=== PATIENT | female | born 1970 | race Caucasian/White ===

== ENCOUNTER 2016-06-01 22:49 | Emergency (ER) ==
[2016-06-01 22:56] VITALS: BP 142/93; TEMP 98.9; BMI 23.7
--- NOTE | 2016-06-01 23:23 | ED.PDOC ---
General ED Provider: Dr. GIFTY NORTON Chief Complaint: Chest Pain Stated Complaint: patient is a 46 year old who comes to the ER with c/o pain to left side of chest that radiates to the to back. she also states it is a pressure only when she breathes. Also c/o pain to left arm. states she worked in the yard yesterday and thought initially from that but pain worsened all day. patient restarted phenteramin 1 week ago after being off for 6 months. states 2 days ago she had the dose increased and has not felt right since. Time Seen by Physician: 23:21 Mode of Arrival: Walk-In Information Source: Patient Exam Limitations: No limitations Nursing and Triage Documentation Reviewed and Agree: Yes Cardiovascular Complaint Exam - Chest Pain Complaint/Exam Onset: Gradual Duration: 2 days Symptoms Are: Still present Timing: Intermittent Initial Severity: Moderate Current Severity: Moderate Location: Reports: Left lateral Pain Radiates: Reports: None Character: Reports: Aching, Sharp Aggravating: Reports: Movement, Deep breaths Alleviating: Reports: Rest Associated Signs and Symptoms: Denies: Diaphoresis, Nausea, Vomiting, Fever, Palpitations, Cough, Hemoptysis, Back pain, Abdominal pain, Dizziness, Short of air, Calf pain, Calf swelling AMI/ACS Risk Factors: Reports: None TAD Risk Factors: Reports: None Pulmonary Embolism Risk Factors: Reports: None Prior Care for this Complaint: No Recent Stress Test: No Recent Echo/LV Function: No JVD Present: No Subcutaneous Emphysema Present: No Diminshed Breath Sounds: No Reproducible Chest Wall Pain: Yes Bilateral Pulses Present: No Unequal Pulses Noted: No Chest Picture: 1 - area of pain If Risk Factors for AMI/ACS Consider: EKG, Cardiac Enzymes, Aspirin 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 Review of Systems - Review Of Systems Constitutional: Reports: No symptoms Eyes: Reports: No symptoms Ears, Nose, Mouth, Throat: Reports: No symptoms Respiratory: Reports: No symptoms Cardiac: Reports: Chest pain GI: Reports: No symptoms : Reports: No symptoms Musculoskeletal: Reports: No symptoms Skin: Reports: No symptoms Neurological: Reports: Anxiety Endocrine: Reports: No symptoms Hematologic/Lymphatic: Reports: No symptoms All Other Systems: Reviewed and Negative Past Medical History - Past Medical History Endocrine: Reports: None Cardiovascular: Reports: None Respiratory: Reports: None Hematological: Reports: Anemia Gastrointestinal: Reports: None Genitourinary: Reports: None Neuro/Psych: Reports: None Musculoskeletal: Reports: None Cancer: Reports: None Last Menstrual Period: 2003 - Surgical History General Surgical History: Reports: Tubal ligation, Tonsillectomy, Other (Knee surgery ) - Family History Family History: Reports: Heart - Social History Smoking Status: Current every day smoker, Light tobacco smoker Hx Substance Use: No Alcohol Screening: None Physical Exam - Physical Exam Appearance: Ill-appearing, Thin Ill-appearing: Mild Pain Distress: Moderate Eyes: SERENA, EOMI, Conjunctiva clear ENT: Ears normal, Nose normal, Oropharynx normal Neck: Supple Respiratory: Airway patent, Breath sounds clear, Breath sounds equal, Respirations nonlabored Cardiovascular: RRR GI/: Soft, Nontender, No masses, Bowel sounds normal, No Organomegaly Musculoskeletal: Normal strength, ROM intact, No edema, No calf tenderness Skin: Warm, Dry, Normal color Neurological: Sensation intact Psychiatric: Anxious Interpretation - Radiology Interpretation Radiology Interpretation By: ED Physician Radiology Results: Negative Exam Interpreted: Portable CXR - EKG Interpretation Time of EKG #1: 23:05 Rate: Normal Rhythm: Sinus Ectopy: None [place]: NL ST Segment: Normal Interpretation: Accelerated Junctional Rhythm Re-Evaluation - Re-Evaluation Time of Re-Evaluation: 00:53 Status: Improved (pain is gone ) Critical Care Note - Critical Care Note Total Time (mins): 20 Course - Course Hematology/Chemistry: 06/01/16 23:20 06/01/16 23:20 Orders, Labs, Meds: Lab Review 06/01/16 23:20 WBC 5.46 RBC 4.20 Hgb 12.2 Hct 36.4 L MCV 86.7 MCH 29.0 MCHC 33.5 RDW Coeff of Abraham 13.4 Plt Count 205 Immature Gran % (Auto) 0.0 Neut % (Auto) 39.1 Lymph % (Auto) 48.2 [place] % (Auto) 8.2 Eos % (Auto) 3.8 Baso % (Auto) 0.7 Immature Gran # (Auto) 0.0 Neut # 2.1 Lymph # 2.6 [place] # 0.5 Eos # 0.2 Baso # 0.0 D-Dimer < 0.19 L Sodium 141 Potassium 3.9 Chloride 106 Carbon Dioxide 27 Anion Gap 11.9 BUN 16 Creatinine 0.80 Estimated GFR (MDRD) 78.00 BUN/Creatinine Ratio 20.00 Glucose 88 Calcium 9.3 Total Bilirubin 0.36 AST 17 ALT 12 Alkaline Phosphatase 73 Total Creatine Kinase 104 Troponin I 0.0140 B-Natriuretic Peptide < 10 Total Protein 7.0 Albumin 4.0 Globulin 3.0 Albumin/Globulin Ratio 1.33 TSH 3.032 Free T4 0.91 Orders Category Date Time Status EKG-(ED ONLY) Stat CARDIO 06/01/16 23:20 Completed ED LABOR MEDIATOR APPLIED .ONCE EMERGENCY 06/01/16 23:20 Active B-TYPE NATRIURETIC PEPTIDE Stat LAB 06/01/16 23:20 Completed CBC W/ AUTO DIFF Stat LAB 06/01/16 23:20 Completed COMPREHENSIVE METABOLIC PANEL Stat LAB 06/01/16 23:20 Completed CREATINE KINASE Stat LAB 06/01/16 23:20 Completed D-DIMER Stat LAB 06/01/16 23:20 Completed FREE T4 (FREE THYROXINE) Stat LAB 06/01/16 23:20 Completed THYROID STIMULATING HORMONE Stat LAB 06/01/16 23:20 Completed TROPONIN I Stat LAB 06/01/16 23:20 Completed Aspirin [Aspirin Chewable] MEDS 06/01/16 23:39 Discontinued 324 mg PO ONCE STA Ketorolac Tromethamine [Toradol] MEDS 06/01/16 23:39 Discontinued 30 mg IVP ONCE STA CHEST, 1V AP ONLY Stat RADS 06/01/16 23:20 Completed Medications Discontinued Medications Generic Name Dose Route Start Last Admin Trade Name Freq PRN Reason Stop Dose Admin Aspirin 324 mg 06/01/16 23:39 06/01/16 23:48 Aspirin Chewable PO 06/01/16 23:40 324 mg ONCE STA Administration Ketorolac Tromethamine 30 mg 06/01/16 23:39 06/01/16 23:53 Toradol IVP 06/01/16 23:40 30 mg ONCE STA Administration Vital Signs: Temp Pulse Resp BP Pulse Ox 06/01/16 22:50 98.9 F 80 20 142/93 H 100 RAMBO Risk Score Age >/= 65: No >/= 3 CAD Risk Factors: No Known CAD (Stenosis >/= 50%): No ASA Use in Past 7 Days: No Severe Angina (>/= 2 episodes in 24 hours): No EKG ST Changes >/= 0.5mm: No Postive Cardiac Marker: No RAMBO Total Score: 0 RAMBO Risk Score: Risk Score Odds of by 30D 0 0.1 (0.1-0.2) 1 0.3 (0.2-0.3) 2 0.4 (0.3-0.5) 3 0.7 (0.6-0.9) 4 1.2 (1.0-1.5) 5 2.2 (1.9-2.6) 6 3.0 (2.5-3.6) 7 4.8 (3.8-6.1) Departure - Departure Time of Disposition: 00:52 Disposition: HOME SELF-CARE Discharge Problem: Chest pain Instructions: Chest Wall Pain (ED), Pleurisy (ED) Condition: Stable Pt referred to PMD for follow-up: Yes Additional Instructions: Push fluids Take Motrin as prescribed. Rest Prescriptions: Ibuprofen [Motrin] 600 mg PO Q6H PRN #30 tablet PRN Reason: Analgesia Allergies/Adverse Reactions: Allergies Penicillins Adverse Reaction (Verified 06/01/16 22:56) Sulfa (Sulfonamide Antibiotics) Adverse Reaction (Verified 06/01/16 22:56) Home Medications: Ambulatory Orders Phentermine HCl 37.5 mg PO DAILY 06/01/16 Ibuprofen [Motrin] 600 mg PO Q6H PRN #30 tablet 06/02/16 Disposition Discussed With: Patient, Family
[2016-06-01 23:33] LABS: BASOPHILS % (AUTO) 0.7 % (0.0-3.0); EOSINOPHILS # (AUTO) 0.2 K/ul (0.0-0.7); EOSINOPHILS % (AUTO) 3.8 % (0.0-7.0); HEMATOCRIT 36.4 % (37.0-47.0); HEMOGLOBIN 12.2 g/dl (12.0-16.0); LYMPHOCYTES # (AUTO) 2.6 K/uL (0.60-3.4); LYMPHOCYTES % (AUTO) 48.2 (10.0-50.0); MEAN CORPUSCULAR HGB CONC 33.5 (31.8-35.4); MEAN CORPUSCULAR VOLUME 86.7 fl (81.0-99.0); MONOCYTES # (AUTO) 0.5 K/uL (0.4-2.0); MONOCYTES % (AUTO) 8.2 (0-10); NEUTROPHILS # (AUTO) 2.1 K/ul (2.0-6.9); NEUTROPHILS % (AUTO) 39.1; PLATELET COUNT 205 10^3/uL (140-440); WHITE BLOOD COUNT 5.46 K/ul (4.6-10.2)
[2016-06-01] MEDS ORDERED: ASPIRIN CHEWABLE PO STA (23:39)
[2016-06-01] MEDS ORDERED: TORADOL IVP STA (23:39)
[2016-06-01 23:57] LABS: ALBUMIN/GLOBULIN RATIO 1.33; ANION GAP 11.9; BILIRUBIN,TOTAL 0.36 mg/dL (0.00-1.20); CALCIUM 9.3 mg/dL (8.2-10.2); CREATININE 0.8 mg/dL (0.60-1.30); POTASSIUM 3.9 mmol/L (3.5-5.10); TROPONIN I 0.014 ng/ml (0.0000-0.4000)
--- NOTE | 2016-06-02 00:50 | DI ---
EXAM: AP single view of the chest. HISTORY: Chest pain. FINDINGS: The bony structures are unremarkable. The cardiac silhouette and pulmonary vasculature a re within normal limits. The costophrenic angles are clear. No infiltrate or consolidation. Impression: No acute cardiopulmonary disease.
== END 2016-06-02 01:10 | disposition home or self-care (01) ==
LOC: ED 22:49
DX: R07.9 Chest pain, unspecified (principal); F17.210 Nicotine dependence, cigarettes, uncomplicated; Z79.899 Other long term (current) drug therapy
CPT/HCPCS: 36415; 80053; 82550; 83880; 84439; 84443; 84484; 85025; 85379; 93005; 93010; 96372; 99283

== ENCOUNTER 2016-06-20 13:10 | Emergency (ER) ==
[2016-06-20 13:14] VITALS: BP 146/82; TEMP 97.6; BMI 23.4
--- NOTE | 2016-06-20 13:23 | ED.PDOC ---
General ED Provider: Dr. KAYE NUNES JR Chief Complaint: Stroke Stated Complaint: patient states she is having numbness to right side of face. states even nose feels numb. states has not had any phenterimine since last . was seen in her approx 3 weeks ago with chest pain that was related to phenteramine. pain left scapula area with deep breath.[End]1115 97.6 85 16 99% 146/82 09/08 Time Seen by Physician: 13:23 Mode of Arrival: Walk-In Information Source: Patient Exam Limitations: No limitations Nursing and Triage Documentation Reviewed and Agree: No Review of Systems - Review Of Systems Constitutional: Reports: No symptoms Eyes: Reports: No symptoms Ears, Nose, Mouth, Throat: Reports: No symptoms Respiratory: Reports: No symptoms Cardiac: Reports: No symptoms GI: Reports: No symptoms : Reports: No symptoms Musculoskeletal: Reports: No symptoms Skin: Reports: Other Neurological: Reports: Numbness Endocrine: Reports: No symptoms Hematologic/Lymphatic: Reports: No symptoms All Other Systems: Other Past Medical History - Past Medical History Endocrine: Reports: None Cardiovascular: Reports: None Respiratory: Reports: None Hematological: Reports: Anemia Gastrointestinal: Reports: None Genitourinary: Reports: None Neuro/Psych: Reports: None Musculoskeletal: Reports: None Cancer: Reports: None Last Menstrual Period: n/a - Surgical History General Surgical History: Reports: Tubal ligation (1993), Tonsillectomy, Orthopedic (Knee Surgery times 2), Other (Knee surgery ) - Family History Family History: Reports: Heart - Social History Smoking Status: Current every day smoker, Light tobacco smoker Hx Substance Use: No Alcohol Screening: None Physical Exam - Physical Exam Appearance: Well-appearing, No pain distress, Well-nourished Eyes: SERENA, EOMI, Conjunctiva clear ENT: Ears normal, Nose normal, Oropharynx normal Neck: Supple Respiratory: Airway patent, Breath sounds clear, Breath sounds equal, Respirations nonlabored Cardiovascular: RRR, Pulses normal, No rub, No murmur GI/: Soft, Nontender, No masses, Bowel sounds normal, No Organomegaly Musculoskeletal: Normal strength, ROM intact, No edema, No calf tenderness Skin: Warm, Dry, Normal color Neurological: Sensation intact, Motor intact, Reflexes intact, Cranial nerves intact (complains of numbness right half of face down middle of nose no tender CN's intact to teating), Alert, Oriented Psychiatric: Anxious Critical Care Note - Critical Care Note Total Time (mins): 0 Course - Course Vital Signs: Temp Pulse Resp BP Pulse Ox 06/20/16 13:11 97.6 F 85 16 146/82 H 99 Departure - Departure Time of Disposition: 13:32 Disposition: HOME SELF-CARE Discharge Problem: Neuritis Instructions: Paresthesia (ED) Condition: Good Pt referred to PMD for follow-up: Yes Additional Instructions: recheck PMD one week may use Tylenol and Motrin will improve symptoms Motrin likely more beneficial return if rash or swelling if unable to move part of body rashes indicate possible treatable viruses Allergies/Adverse Reactions: Allergies Penicillins Adverse Reaction (Verified 06/20/16 13:19) Sulfa (Sulfonamide Antibiotics) Adverse Reaction (Verified 06/20/16 13:19) Home Medications: Ambulatory Orders 1 [No Reported Medications] 06/20/16
== END 2016-06-20 13:40 | disposition home or self-care (01) ==
LOC: ED 13:10
DX: M79.2 Neuralgia and neuritis, unspecified (principal); F17.210 Nicotine dependence, cigarettes, uncomplicated
CPT/HCPCS: 99283

== ENCOUNTER 2016-07-16 18:47 | Emergency (ER) ==
[2016-07-16 18:48] VITALS: BMI 23.4
[2016-07-16 18:50] VITALS: BP 122/81; TEMP 98.2
--- NOTE | 2016-07-16 19:15 | ED.PDOC ---
General ED Provider: Dr. BILL GRADY-ER Chief Complaint: Fall Stated Complaint: i fell and hurt my head and my left shoulder Time Seen by Physician: 19:13 Mode of Arrival: Walk-In Information Source: Patient Exam Limitations: No limitations Primary Care Provider: REY LICEA Nursing and Triage Documentation Reviewed and Agree: Yes Neurological Complaint Exam - Headache Complaint/Exam Onset: Gradual Duration: 7hrs Symptoms Are: Still present Timing: Constant Episodes Lasting: Hours Worst Headache Ever: No Initial Severity: Mild Current Severity: Moderate Location: Left Character: Reports: Dull, Throbbing Aggravating: Reports: None Alleviating: Reports: None Associated Signs and Symptoms: Denies: Dizziness, Seizure, Nausea, Vomiting, Sinus pressure, Fever, Neck pain, Neck stiffness, Decreased LOC, Visual changes Related History: Reports: Recent trauma Related Surgical History: Reports: None SAH Risk Factors: Reports: None Meningitis Risk Factors: Reports: None SDH Risk Factors: Reports: None, Coagulopathy Temporal Arteritis Risk Factors: Reports: Normal Head CT Within Last 12 Months: No Fundoscopic Exam: Present: Normal Findings Papilledema Present: No Temporal Artery Tenderness: Present: None Sinus Tenderness: Present: None TMJ Tenderness: Present: None Glascow Coma Scale (see protocol): 15 Meningeal Signs Positive: No Pain on Passive Flexion-Positive Kernig's: No ROM Limited In: No Limitiations Focal Weakness: Present: None Focal Sensory Loss: Present: None Gait: Normal Nystagmus Present: No Gag Reflex Present: Yes [id number]: Normal Findings Romberg Test Positive: No Babinski Sign: Negative Right, Negative Left Heel to Toe Normal: Yes Differential Diagnoses: Other Review of Systems - Review Of Systems Constitutional: Reports: No symptoms Eyes: Reports: No symptoms Ears, Nose, Mouth, Throat: Reports: No symptoms Respiratory: Reports: No symptoms Cardiac: Reports: No symptoms GI: Reports: No symptoms : Reports: No symptoms Musculoskeletal: Reports: Joint pain Skin: Reports: No symptoms Neurological: Reports: Headache Endocrine: Reports: No symptoms Hematologic/Lymphatic: Reports: No symptoms All Other Systems: Reviewed and Negative Past Medical History - Past Medical History Endocrine: Reports: None Cardiovascular: Reports: None Respiratory: Reports: None Hematological: Reports: Anemia Gastrointestinal: Reports: None Genitourinary: Reports: None Neuro/Psych: Reports: None Musculoskeletal: Reports: None Cancer: Reports: None Last Menstrual Period: 2003 - Surgical History General Surgical History: Reports: Tubal ligation (1993), Tonsillectomy, Orthopedic (Knee Surgery times 2), Other (Knee surgery ) - Family History Family History: Reports: Heart - Social History Smoking Status: Current every day smoker, Light tobacco smoker Hx Substance Use: No Alcohol Screening: None Lives: With family Physical Exam - Physical Exam Appearance: Well-appearing, No pain distress, Well-nourished Pain Distress: Mild Eyes: SERENA, EOMI, Conjunctiva clear ENT: Ears normal, Nose normal, Oropharynx normal Neck: Supple Respiratory: Airway patent, Breath sounds clear, Breath sounds equal, Respirations nonlabored Cardiovascular: RRR, Pulses normal, No rub, No murmur GI/: Soft, Nontender, No masses, Bowel sounds normal, No Organomegaly Musculoskeletal: Normal strength, ROM intact, No edema, No calf tenderness Skin: Warm, Dry, Normal color Neurological: Sensation intact, Motor intact, Reflexes intact, Cranial nerves intact, Alert, Oriented Psychiatric: Affect appropriate Interpretation - Radiology Interpretation Radiology Interpretation By: Radiologist Radiology Results: Negative Exam Interpreted: CT Scan Re-Evaluation - Re-Evaluation Time of Re-Evaluation: 19:36 Status: Improved (no numbness) Vital Signs Stable: Yes Pain Level: 1 Appearance: NAD Lungs: Clear Skin: Warm and Dry Neuro: Alert and Oriented X3 CV: RRR Critical Care Note - Critical Care Note Total Time (mins): 0 Course - Course Orders, Labs, Meds: Orders Category Date Time Status CT CERVICAL SPINE W/O CONTRAST Stat RADS 07/16/16 18:[address] HEAD W/O CONTRAST Stat RADS 07/16/16 18:54 Completed SHOULDER, LEFT MIN 2V Stat RADS 07/16/16 18:55 Completed Vital Signs: Temp Pulse Resp BP Pulse Ox 07/16/16 18:48 98.2 F 101 H 16 122/81 98 Departure - Departure Time of Disposition: 19:36 Disposition: HOME SELF-CARE Discharge Problem: Contusion Qualifiers: Encounter type: initial encounter Contusion area: head Contusion of head detail : scalp Qualifier Code: (S00.03XA) Contusion of scalp, initial encounter Instructions: Contusion in Adults (ED) Condition: Good Pt referred to PMD for follow-up: Yes Additional Instructions: toradol 10mg qid prn pain #16--f/u with pcp--return to er if any problems Allergies/Adverse Reactions: Allergies Penicillins Adverse Reaction (Verified 07/16/16 18:50) Sulfa (Sulfonamide Antibiotics) Adverse Reaction (Verified 07/16/16 18:50) Home Medications: Ambulatory Orders 1 [No Reported Medications] 06/20/16 Disposition Discussed With: Patient
--- NOTE | 2016-07-16 19:19 | CT ---
EXAM: CT BRAIN HISTORY: Fall TECHNIQUE: CT brain without intravenous contrast. 5-mm axial sections with Reformations. COMPARISON: None FINDINGS: Brain is unremarkable without distinct evidence of hemorrhage or large vessel distribution recent ischemic infarction. There is no suggestion of acute hydrocephalus or subdural fluid collection. N o mass or mass effect. Cranium is within normal limits. Mastoid air cells are aerated. The visualized paranasal sinuses are clear. IMPRESSION: No acute intracranial process.
--- NOTE | 2016-07-16 19:29 | DI ---
EXAM: Left shoulder; AP internal rotation, AP external rotation, and scapular Y views HISTORY: Left shoulder pain post fall FINDINGS: Minimal osteophyte formation is detected at the acromioclavicular joint space. The glenoh umeral joint space is normal. The bone density and soft tissues are normal. No fracture, osteolysi s, or subluxation are detected. OPINION: No acute fracture or subluxation. Minimal acromioclavicular osteoarthritis.
--- NOTE | 2016-07-16 19:29 | CT ---
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 Reports numbness to right side of forehead and right forearm. TECHNIQUE: Multi-slice transaxial helical with coronal and sagittal reformatted views. COMPARISON: None FINDINGS: The intervertebral joint spaces are mildly narrowed diffusely. The C2-C3 intervertebral joint space is moderately narrowed. There is 12 degrees of dextroscoliosis with its apex at C4-C5. The vertebrae have normal height and alignment. No acute fractures or lithesis are observed. The pr evertebral soft tissues have normal width. The facet alignment is appropriate. Segmental analysis: C2-C3: A mild disc protrusion effaces the thecal sac. The central canal diameters maintained. No n eural foramen stenosis. C3-C4: A mild disc protrusion effaces the thecal sac. The central canal diameters maintained. No n eural foramen stenosis. C4-C5: A mild disc spur complex effaces the thecal sac. The central canal diameter is maintained. The facets and uncovertebral joints are hypertrophic with mild left neural foramen stenosis. The ri ght neural foramen is maintained. C5-C6: Minimal disc protrusion effaces the thecal sac. No central canal or neural foramen stenosis. C6-C7: No significant disc herniation, central canal stenosis, or neural foramen stenosis. C7-T1: no significant disc herniation, central canal stenosis, or neural foramen stenosis. IMPRESSION: 1. No acute fracture or lithesis. 2. Mild left neural foramen stenosis at C4-C5. 3. Diffuse degenerative disc disease, moderate at C2-C3 and mild at the more caudad levels.
== END 2016-07-16 19:42 | disposition home or self-care (01) ==
LOC: ED 18:47
DX: S00.03XA Contusion of scalp, initial encounter (principal); M25.512 Pain in left shoulder; W19.XXXA Unspecified fall, initial encounter; F17.210 Nicotine dependence, cigarettes, uncomplicated
CPT/HCPCS: 99283

== ENCOUNTER 2017-05-23 10:11 | Emergency (ER) ==
[2017-05-23 10:22] VITALS: BP 119/84; TEMP 98.6; BMI 25.2
--- NOTE | 2017-05-23 11:43 | ED.PDOC ---
General ED Provider: Dr. BILL JULES Chief Complaint: Respiratory Complaint Stated Complaint: Facial numbness, shoulder pain, posterior chest wall pain and coughing. State went to a chiropractor who told her that she had atrophy of her posterior Rt shoulder region. States last year had been taking Phenteramine for weight loss. Lost 30# but she developed facial, forhead numbness and Lt sided weakness and numbness. Evaluated by neurologist and all testing she stated performed failed to reveal a cause of her symptoms.Eventually all symptoms resolved She as well stoppped Phenteramine but recently started taking 1/2 tablet twice weekly. Symptoms then started again. Time Seen by Physician: 10:20 Mode of Arrival: Walk-In Information Source: Patient Primary Care Provider: REY LICEA Nursing and Triage Documentation Reviewed and Agree: Yes (State nothing mentioned about facial numbness) Reviewed sepsis parameters & appropriate labs ordered?: Yes System Inflammatory Response Syndrome: Not Applicable Sepsis Protocol: For patient's 13 years and over: Temp is 96.8 and below OR 101 and greater Pulse >90 BPM Resp >20/minute Acutely Altered Mental Status Are patient's symptoms suggestive of a new infection, such as: -Pneumonia -Skin, Soft Tissue -Endocarditis -UTI -Bone, Joint Infection -Implantable Device -Acute Abdominal Infection -Wound Infection -Meningitis -Blood Stream Catheter Infection -Unknown System Inflammatory Response Syndrome: Not Applicable Neurological Complaint Exam - Weakness Complaint/Exam Onset: Gradual Symptoms Are: Still present Timing: Constant Episodes Lasting: Minutes Initial Severity: Moderate Current Severity: None (Rt facial numbness) Aggravating: Reports: Position change Associated Signs and Symptoms: Reports: Nausea Related History: Similar episode Cardiac Risk Factors: Reports: None CVA Risk Factors: Reports: None Related Surgical History: Reports: None JVD Present: No Carotid Bruit Present: No Rectal Heme Positive: No Nystagmus Present: No Gag Reflex Present: Yes Meningeal Signs Positive: No Focal Weakness: Present: None Focal Sensory Loss: Present: None Gait: Normal [id number]: Normal Findings Romberg Test Positive: Yes Heel to Toe Normal: Yes Differential Diagnoses: Vasovagal reaction Review of Systems - Review Of Systems Constitutional: Reports: No symptoms Eyes: Reports: No symptoms Ears, Nose, Mouth, Throat: Reports: No symptoms Respiratory: Reports: No symptoms Cardiac: Reports: No symptoms GI: Reports: No symptoms : Reports: No symptoms Musculoskeletal: Reports: Back pain Skin: Reports: No symptoms Neurological: Reports: Headache, Numbness Endocrine: Reports: No symptoms Hematologic/Lymphatic: Reports: No symptoms All Other Systems: Reviewed and Negative Past Medical History - Past Medical History Endocrine: Reports: None Cardiovascular: Reports: None Respiratory: Reports: None Hematological: Reports: Anemia Gastrointestinal: Reports: None Genitourinary: Reports: None Neuro/Psych: Reports: None, Anxiety, Other (neuralparesthesia) Musculoskeletal: Reports: None Cancer: Reports: None Last Menstrual Period: hysterectomy - Surgical History General Surgical History: Reports: Tubal ligation (1993), Tonsillectomy, Orthopedic (Knee Surgery times 2), Other (Knee surgery ) - Family History Family History: Reports: Heart - Social History Smoking Status: Current every day smoker, Light tobacco smoker Hx Substance Use: No Alcohol Screening: None Physical Exam - Physical Exam Appearance: Well-appearing, No pain distress Ill-appearing: None Pain Distress: None Eyes: SERENA, EOMI, Conjunctiva clear ENT: Ears normal, Nose normal, Oropharynx normal Neck: Supple Respiratory: Airway patent, Breath sounds clear Cardiovascular: RRR, Pulses normal, No rub GI/: Soft, Nontender, No masses, Bowel sounds normal Musculoskeletal: Normal strength (Rt Upper Thoracic Paraspinous MM spasm with T3 -& T4 Somatic Dysfuntion ), ROM intact, No edema Skin: Warm Neurological: Sensation intact, Motor intact, Reflexes intact, Cranial nerves intact, Alert, Oriented Psychiatric: Affect appropriate, Mood appropriate Procedures - Additional Procedures Additional Procedures: Other (Rt Thoracic 3-4 Counterstrain/OMT with symptomatic resolution of symptoms) Re-Evaluation - Re-Evaluation Time of Re-Evaluation: 12:45 Status: Improved Vital Signs Stable: Yes Appearance: NAD Lungs: Clear Skin: Warm and Dry Neuro: Alert and Oriented X3 CV: RRR Critical Care Note - Critical Care Note Total Time (mins): 0 Course - Course Hematology/Chemistry: 05/23/17 12:15 05/23/17 12:15 Orders, Labs, Meds: Lab Review 05/23/17 05/23/17 05/23/17 12:15 12:15 12:26 WBC 8.64 RBC 4.71 Hgb 13.6 Hct 40.6 MCV 86.2 MCH 28.9 MCHC 33.5 RDW Coeff of Abraham 13.4 Plt Count 228 Immature Gran % (Auto) 0.2 Neut % (Auto) 57.2 Lymph % (Auto) 31.7 Catron % (Auto) 7.6 Eos % (Auto) 2.7 Baso % (Auto) 0.6 Immature Gran # (Auto) 0.0 Neut # 4.9 Lymph # 2.7 Catron # 0.7 Eos # 0.2 Baso # 0.1 Sodium 143 Potassium 5.0 Chloride 106 Carbon Dioxide 29 Anion Gap 13.0 BUN 15 Creatinine 0.80 Estimated GFR (MDRD) 77.00 BUN/Creatinine Ratio 18.75 Glucose 100 Calcium 9.8 Total Bilirubin 0.4 AST 15 ALT 11 L Alkaline Phosphatase 82 Total Protein 7.4 Albumin 3.8 Globulin 3.6 Albumin/Globulin Ratio 1.06 Urine Color Yellow Urine Clarity Clear Urine pH 6.5 Ur Specific Chester 1.015 Urine Protein Negative Urine Glucose (UA) Negative Urine Ketones Negative Urine Blood Negative Urine Nitrite Negative Urine Bilirubin Negative Urine Urobilinogen 0.2 Ur Leukocyte Esterase Negative Orders Category Date Time Status CBC W/ AUTO DIFF Stat LAB 05/23/17 12:15 Completed CMP [COMPREHENSIVE METABOLIC PANEL] Stat LAB 05/23/17 12:15 Completed UA [URINALYSIS C & S IF INDICATED] Stat LAB 05/23/17 12:[address] HEAD W/O CONTRAST Stat RADS 05/23/17 11:54 Completed Vital Signs: Temp Pulse Resp BP Pulse Ox 05/23/17 10:13 98.6 F 95 H 20 119/84 98 Departure - Departure Time of Disposition: 13:10 Disposition: HOME SELF-CARE Discharge Problem: Facial paresthesia, Thoracic region somatic dysfunction, Phentermine adverse reaction Instructions: Paresthesia (ED), Adverse Drug Reaction (ED), Muscle Spasm (ED) Condition: Good Pt referred to PMD for follow-up: Yes (1 week) IPMP verified?: No Additional Instructions: Exercise Monitor for recurrent symptoms Follow up with neurologist Avoid use of Phenteramine Allergies/Adverse Reactions: Allergies Penicillins Adverse Reaction (Verified 05/23/17 10:22) Sulfa (Sulfonamide Antibiotics) Adverse Reaction (Verified 05/23/17 10:22) Home Medications: Ambulatory Orders Acetaminophen [Tylenol] 650 mg PO Q4H PRN 05/23/17 Phentermine HCl [Adipex-P] 0.5 tab PO 2 TIMES PER WEEK 05/23/17
--- NOTE | 2017-05-23 12:28 | CT ---
EXAM: CT BRAIN HISTORY: Facial numbness TECHNIQUE: CT brain without intravenous contrast. 5-mm axial sections with Reformations. COMPARISON: 07/16/2016 FINDINGS: Brain is unremarkable without evidence of hemorrhage or large vessel distribution recent ischemic in farction. There is no suggestion of acute hydrocephalus or subdural fluid collection. No mass or ma ss effect. Cranium is within normal limits. Mastoid processes are aerated. The visualized paranasal sinuses a re clear. IMPRESSION: No acute intracranial process.
== END 2017-05-23 13:26 | disposition home or self-care (01) ==
LOC: ED 10:11
DX: R20.2 Paresthesia of skin (principal); T50.5X5A Adverse effect of appetite depressants, initial encounter; M99.02 Segmental and somatic dysfunction of thoracic region; F17.210 Nicotine dependence, cigarettes, uncomplicated
CPT/HCPCS: 36415; 80053; 81001; 85025; 99283

== ENCOUNTER 2017-05-30 09:49 | Outpatient (CLI) ==
--- NOTE | 2017-05-30 10:22 | DI ---
EXAM: Radiographs, right shoulder HISTORY: Right scapular pain. COMPARISON: None available. TECHNIQUE: Three views. FINDINGS: Bone mineralization is decreased. There is no fracture or dislocation. The acromioclavic ular joint space is mildly narrowed. There is mild spurring at the inferior glenohumeral joint. No focal soft tissue abnormality is seen. IMPRESSION: Mild osteoarthritis.
== END 2017-05-30 09:50 | disposition home or self-care (01) ==
LOC: RAD 09:49
PROVIDERS: ATTEND Internal Medicine
DX: M89.8X1 Other specified disorders of bone, shoulder (principal)

== ENCOUNTER 2018-05-09 15:53 | Emergency (ER) ==
[2018-05-09 15:58] VITALS: BP 136/81; TEMP 98.2; BMI 25.0
--- NOTE | 2018-05-09 16:47 | CT ---
EXAM: CT of the pelvis without contrast History: Left hip pain. Comparison: Left hip radiograph 11/07/2016 Technique: Multiplanar CT images through the pelvis were obtained without the administration of IV c ontrast Findings: No bladder wall thickening. Scattered colonic stool. No pelvic fluid. No perirectal inf lammation. Uterus is not seen and likely has been surgically removed. No pelvic lymphadenopathy. No acute fracture or dislocation. Mild narrowing of bilateral hip joints with small osteophytes. Th ere is faint chondrocalcinosis seen within bilateral hip joints. Severe disc space narrowing at L5-S 1 with endplate sclerosis and vacuum disc phenomenon. Surrounding soft tissues demonstrate no abnorm ality. Bilateral sacroiliac joints are intact. Impression: 1. No acute osseous abnormality. 2. Mild arthritis of bilateral hip joints. 3. Chondrocalcinosis within bilateral hip joints. 4. Severe degenerative disc disease at L5-S1
--- NOTE | 2018-05-09 17:19 | ED.PDOC ---
General ED Provider: Dr. ZAKI CAMEJO Chief Complaint: Hip Pain/Injury Stated Complaint: left hip pain Time Seen by Physician: 16:00 Mode of Arrival: Walk-In Information Source: Patient Exam Limitations: No limitations Primary Care Provider: REY LICEA Nursing and Triage Documentation Reviewed and Agree: Yes Does patient meet sepsis criteria?: No (may lawson present at all times ) System Inflammatory Response Syndrome: Not Applicable Sepsis Protocol: For patient's 13 years and over: Temp is 96.8 and below OR 101 and greater Pulse >90 BPM Resp >20/minute Acutely Altered Mental Status Are patient's symptoms suggestive of a new infection, such as: -Pneumonia -Skin, Soft Tissue -Endocarditis -UTI -Bone, Joint Infection -Implantable Device -Acute Abdominal Infection -Wound Infection -Meningitis -Blood Stream Catheter Infection -Unknown Musculoskeletal Complaint Exam - Hip/Pelvis Complaint/Exam Location of Pain: Reports: Left, Hip Mechanism of Injury: Reports: No known trauma Onset/Duration: chronic worse today Symptoms Are: Still present Initial Severity: Moderate Current Severity: None Location: Reports: Discrete (left hip) Aggravating: Reports: None Alleviating: Reports: None Associated Signs and Symptoms: Denies: Swelling, Redness, Bruising, Fever, Weakness, Dizziness, Syncope, Abdominal pain, Knee pain Related History: Reports: Similar episode Able to Bear Weight: No Septic Arthritis Risk Factors: Reports: None Related Surgical History: Reports: None Pelvis Palpation: Stable Tenderness: Present: Left (hip) Differential Diagnoses: Sprain, Strain Review of Systems - Review Of Systems Constitutional: Reports: No symptoms Eyes: Reports: No symptoms Ears, Nose, Mouth, Throat: Reports: No symptoms Respiratory: Reports: No symptoms Cardiac: Reports: No symptoms GI: Reports: No symptoms : Reports: No symptoms Musculoskeletal: Reports: Joint pain (left hip) Skin: Reports: No symptoms Neurological: Reports: No symptoms Endocrine: Reports: No symptoms Hematologic/Lymphatic: Reports: No symptoms All Other Systems: Reviewed and Negative Past Medical History - Past Medical History Previously Healthy: Yes Endocrine: Reports: None Cardiovascular: Reports: None Respiratory: Reports: None Hematological: Reports: Anemia Gastrointestinal: Reports: None Genitourinary: Reports: None Neuro/Psych: Reports: None, Anxiety, Other (neuralparesthesia) Musculoskeletal: Reports: None Cancer: Reports: None Last Menstrual Period: none - Surgical History General Surgical History: Reports: Tubal ligation (1993), Tonsillectomy, Orthopedic (Knee Surgery times 2), Other (Knee surgery ) - Family History Family History: Reports: Heart - Social History Smoking Status: Current every day smoker, Light tobacco smoker Hx Substance Use: No Alcohol Screening: None Physical Exam - Physical Exam Appearance: Well-appearing, No pain distress, Well-nourished Eyes: SERENA, EOMI, Conjunctiva clear ENT: Ears normal, Nose normal, Oropharynx normal Respiratory: Airway patent, Breath sounds clear, Breath sounds equal, Respirations nonlabored Cardiovascular: RRR, Pulses normal, No rub, No murmur GI/: Soft, Nontender, No masses, Bowel sounds normal, No Organomegaly Musculoskeletal: Limited ROM (left hip) Skin: Warm, Dry, Normal color Neurological: Sensation intact, Motor intact, Reflexes intact, Cranial nerves intact, Alert, Oriented Psychiatric: Affect appropriate, Mood appropriate Interpretation - Radiology Interpretation Radiology Results: No acute changes Exam Interpreted: CT Scan Critical Care Note - Critical Care Note Total Time (mins): 0 Course - Course Orders, Labs, Meds: Orders Category Date Time Status CT PELVIS W/O CONTRAST Stat RADS 05/09/18 16:04 Ordered Vital Signs: Temp Pulse Resp BP Pulse Ox 05/09/18 15:53 98.2 F 81 18 136/81 98 Departure - Departure Time of Disposition: 17:19 Disposition: HOME SELF-CARE Discharge Problem: Hip pain Instructions: Hip Pain (ED), Arthralgia (ED) Condition: Good Pt referred to PMD for follow-up: Yes IPMP verified?: No Additional Instructions: Please call your Family Physician as soon as possible to schedule a follow-up appointment. Prescriptions: Hydrocodone/Acetaminophen [Woodland 5-325 Tablet] 1 each PO Q8-12H PRN #12 tablet PRN Reason: PAIN Allergies/Adverse Reactions: Allergies Penicillins Adverse Reaction (Verified 05/09/18 15:59) Sulfa (Sulfonamide Antibiotics) Adverse Reaction (Verified 05/09/18 15:59) Home Medications: Ambulatory Orders Hydrocodone/Acetaminophen [Woodland 5-325 Tablet] 1 each PO Q8-12H PRN #12 tablet 05/09/18
== END 2018-05-09 17:25 | disposition home or self-care (01) ==
LOC: ED 15:53
DX: M25.552 Pain in left hip (principal); F17.210 Nicotine dependence, cigarettes, uncomplicated
CPT/HCPCS: 99282

== ENCOUNTER 2018-06-10 08:19 | Outpatient (CLI) | END 2018-06-10 08:20 | disposition home or self-care (01) | LOC: LAB 08:19 | PROVIDERS: ATTEND Internal Medicine | DX: R63.5 Abnormal weight gain (principal); G47.00 Insomnia, unspecified | CPT/HCPCS: 36415; 80053; 84443; 85025 ==